=== PATIENT | male | born 1985 | race Caucasian/White ===

== ENCOUNTER 2022-12-03 11:31 | Emergency (ER) | payer OTHER, SELFPAY ==
--- NOTE | 2022-12-03 11:46 | ED_ITS ---
HPI - General Adult General Chief complaint: Animal Bite Stated complaint: R hand inj dog bite Time Seen by Provider: 12/03/22 12:10 Source: patient and RN notes reviewed Mode of arrival: ambulatory Limitations: no limitations History of Present Illness HPI narrative: This is a 37-year-old male presenting to the emergency department with complaints of dog bite to right hand and the left thigh last night. Patient states that yesterday while he was walking down the street a stray dog ran up and bit him in the right hand and left thigh. The auto suspension and steering mechanic of the dog was not present. Pt is unsure when his last tdap was given to him. He has never received the rabies series. He came to the ER last night however eloped due to wait time. No fevers or chills. He is otherwise feeling well. Reporting concerns given hx of tendon injuries requiring 4 tendon repair surgeries as a child. He reports two of the surgies were performed in [place], the others were performed at [facility]. No other complaints or concerns at this time. MD complaint: Dog bite Onset (ago): day(s) Location: upper extremity and lower extremity Radiation: non-radiation Severity: moderate Quality: aching Pain Consistency: constant Relieving factors: immobilization Exacerbating factors: movement Associated symptoms: denies other symptoms Treatments prior to arrival: none Related Data Previous Rx's Medication Instructions Recorded amoxicillin 875 mg-potassium 1 tab PO BID 5 days #10 tabs 12/03/22 clavulanate 125 mg tablet Allergies Allergy/AdvReac Type Severity Reaction Status Date / Time No Known Allergies Allergy Verified 12/03/22 11:47 Review of Systems Review of Systems: Yes all other systems are reviewed and are negative [facility] Social History Social History Advance Directives: No Advance Directives Information Provided: No Physical Exam ED Vital Signs: Vital Signs - 24 hr 12/03/22 11:47 Temperature 97 F Pulse Rate 62 Respiratory Rate 18 Blood Pressure 147/88 H Pulse Oximetry 96 Oxygen Delivery Method Room Air BMI result Body Mass Index 44.7 Const Other: General: Awake, alert, and oriented X3. No acute distress. HEENT: Normal inspection CVS: Normal heart rate and rhythm. Pulses normal. Respiratory: No respiratory distress Skin: Warm, dry, no rashes noted to exposed skin. Normal skin color. Normal skin turgor. Extremities: Right anterior wrist with well healed surgical scar. 1mm puncture wound noted to ulnar aspect of right wrist, no active drainage or bleeding. dorsum of right wrist with 1mm puncture wound noted. No surrounding erythema or edema. Wounds are tender to palpation. Full ROM of the wrist. Pain with flexion of third, fourth and fifth digits, but able to make fist. Radial pulse 2+. Left anterior thigh with 1mm puncture wound with surrounding ecchymosis noted. No active drainage, bleeding, erythema or warmth. Area is TTP. Neuro: Oriented X 3. No motor deficit. No sensory deficit. Course Course Course Narrative: This is an RME: Additional HPI, ROS, PE not included below will be deferred to primary provider. 37 year old male presents after getting bit by a dog on his right hand yesterday. Does not know the dog or if it was vaccinated. Can move fingers but somewhat limited due to pain. Patient had some tingling in the hand yesterday but that has subsided. Plan: [facility] Medications Administered Discontinued Medications Generic Name Dose Route Start Last Admin Trade Name Freq PRN Reason Stop Dose Admin Rabies Immune Globulin 2,592 unit 12/03/22 13:32 12/03/22 14:06 Rabies Immune Globulin/Pf 900 Unit/3 Ml Vial 20 unit/kg (2592 unit) 12/03/22 13:33 2,592 unit IM Administration ONCE ONE Rabies Vaccine Human Diploid Cell 1 ml 12/03/22 13:32 12/03/22 14:06 Rabies Vaccine, Human Diploid (Imovax) 1 Ml Vial IM 12/03/22 13:33 1 ml .ONCE ONE Administration Medical Decision Making Medical Decision Making MDM Narrative: 37 y/o M, with a hx of right wrist tendon repair surgeries x 4, presenting to the ER with complaints of dog bite to right wrist and left thigh which occurred last night. On arrival, vitals are WNL. Pt has puncture wounds noted to right wrist and left thigh. Wounds are not actively bleeding and do not require suture repair. Wounds were cleansed with betadine and saline. Rabies immunoglobulin infiltrated around wounds on right wrist and left thigh. Pt started rabies series. Given TDAP. Given instructions on where and when to get other rabies vaccinations. Pt understands and agrees with plan. stable for d/c. Differential Diagnosis Differential Diagnoses: The differential diagnosis associated with the pres entation includes laceration, dog bite, rabies prophylaxis Discharge Plan Discharge Clinical Impression: Bite by animal, Encounter for prophylactic administration of rabies immune globulin Patient Disposition: Home, Self-Care Additional Instructions: Please take prescribed antibiotic as directed. Finish the entire course. Keep wounds clean and dry. Watch for any signs of infection including but not limited to worsening redness, swelling, drainage, fevers or chills. If any of these occur, please return for re-evaluation. We have started your rabies series. You received the rabies immunoglobulin as well as rabies vaccine. You must return to day stay to receive your other rabies vaccines, please see attachment for could days you need to return on. If any new or worsening symptoms occur please return for re-evaluation. I am also giving your referral to the Orthopedics. Because you have a history of tendon injury, you should call your surgeon who has performed the surgery to ensure that you good wound healing. If they are unable to see you, you may use our Orthopedics. Call today to make an appointment. [place] el antibi?amari recetado seg?n las indicaciones. Termina todo el curso. Mantenga las heridas limpias y secas. Est? atento a cualquier signo de infecci?n, incluidos, entre otros, empeoramiento del enrojecimiento, hinchaz?n, secreci?n, fiebre o escalofr?os. Si ocurre cualquiera de estos, regrese para suzie reevaluaci?n. Hemos comenzado grajeda serie sobre la servando. Recibi? la inmunoglobulina antirr?bica y la vacuna contra la servando. Debe regresar a grajeda estad?a diurna para recibir evelyn otras vacunas contra la servando; consulte el archivo adjunto para conocer los d?as en los que debe regresar. Si se presenta alg?n s?ntoma nuevo o que empeora, regrese para suzie nueva evaluaci?n. Tambi?n doy grajeda derivaci?n a [employer]. Debido a que tiene antecedentes de lesi?n en el tend?n, debe llamar al cirujano que realiz? la cirug?a para asegurarse de que la herida cicatrice josefa. Si no pueden atenderlo, puede utilizar nuestra [employer]. Llame hoy para programar suzie zoraida. Prescriptions: New amoxicillin-pot clavulanate 875-125 mg tablet 1 tab PO BID 5 Days Qty: 10 0RF Referrals: [facility] [place] [facility] [Provider Group] Interventions: ED Discharge Assessment Last Done: 12/03/22 14:29 Discharge Date/Time: 12/03/22 14:30 Print Language: Chinese
[2022-12-03 11:47] VITALS: BP 147/88; PULSE 62; RESP 18; TEMP 36.1; O2SAT 96; BMI 44.7
[2022-12-03] MEDS: Rabies Vaccine, Human Diploid (Imovax) 1 ML VIAL IM (14:06)
[2022-12-03] MEDS: Rabies Immune Globulin/PF 900 UNIT/3 ML VIAL 2592 UNIT IM (14:06)
--- NOTE | 2022-12-03 14:32 | PC.NURSE ---
rabies order set faxed to [facility] ([phone] and [phone]) fax confirmations rec filed in blue binder
== END 2022-12-03 14:30 | disposition home or self-care (01) ==
PROVIDERS: Emergency Provider Emergency Medicine
DX: S61.551A Open bite of right wrist, initial encounter (principal); S71.152A Open bite, left thigh, initial encounter; W54.0XXA Bitten by dog, initial encounter; Y93.01 Activity, walking, marching and hiking; Y92.414 Local residential or business street as the place of occurrence of the external cause; Y99.9 Unspecified external cause status; Z20.3 Contact with and (suspected) exposure to rabies
CPT/HCPCS: 90375; 90471; 90675; 96372; 99282; 99284

== ENCOUNTER 2022-12-06 13:02 | Outpatient (REF) | payer OTHER, SELFPAY | END 2022-12-06 13:03 | disposition home or self-care (01) | LOC: HO.MDS 13:02 | PROVIDERS: Visit Provider Physician Assistant Medical | DX: Z20.3 Contact with and (suspected) exposure to rabies (principal); S61.451D Open bite of right hand, subsequent encounter; W54.0XXD Bitten by dog, subsequent encounter | CPT/HCPCS: 90471; 90675 ==

== ENCOUNTER 2022-12-10 14:04 | Outpatient (REF) | payer OTHER, SELFPAY | END 2022-12-10 14:05 | disposition home or self-care (01) | LOC: HO.MDS 14:04 | PROVIDERS: Visit Provider Physician Assistant Medical | DX: Z20.3 Contact with and (suspected) exposure to rabies (principal); S61.451D Open bite of right hand, subsequent encounter | CPT/HCPCS: 90471; 90675 ==

== ENCOUNTER 2022-12-17 14:05 | Outpatient (REF) | payer OTHER, SELFPAY | END 2022-12-17 14:06 | disposition home or self-care (01) | LOC: HO.MDS 14:05 | PROVIDERS: Visit Provider Physician Assistant Medical | DX: Z20.3 Contact with and (suspected) exposure to rabies (principal) | CPT/HCPCS: 90471; 90675 ==